=== PATIENT | female | born 1985 ===

== ENCOUNTER 2018-09-19 22:49 | Outpatient (REF) | payer OTHER, SELFPAY ==
[2018-09-19 23:01] LABS: Abs Immature Grans 0.02 k/cumm (0.0-0.09); Absolute Basophil Count 0.05 k/cumm (0.0-0.2); Absolute Eosinophil Count 0.21 k/cumm (0.0-0.7); Absolute Lymphocyte Count 2.78 k/cumm (1.2-3.4); Absolute Monocyte Count 0.69 k/cumm (0.11-0.7); Absolute Neutrophil Count 5.65 k/cumm (1.2-6.7); Basophils % 0.5; Eosinophils % 2.2; HCT 42.1 % (36.0-46.0); HGB 14.4 g/dL (12.0-15.5); Immature Grans % 0.2; Lymphocytes % 29.6; Mean Corp. HGB Concentration 34.2 g/dL (32.0-36.0); Mean Corpuscular Hemoglobin 29.3 pg (27.0-33.0); Mean Corpuscular Volume 85.6 fL (80-95); Mean Platelet Volume 9.7 fL (8.0-11.0); Monocytes % 7.3; Neutrophils % 60.2; Platelet Count 431 x1000/uL (130-400); RBC 4.92 m/cumm (4.00-5.20)
[2018-09-19 23:37] LABS: ALT 23 U/L (12-78); AST 19 U/L (15-37); Alkaline Phosphatase 104 U/L (46-116); Anion Gap 7.2 mmol/L (3-11); BUN 13 mg/dL (7-18); Bilirubin, Total 0.3 mg/dL (0.2-1.0); CO2 28.8 mmol/L (21.0-32.0); CREATININE 0.71 mg/dL (0.55-1.02); Calcium 9.5 mg/dL (8.5-10.1); Chloride 105 mmol/L (98-107); Glucose 87 mg/dL (70-100); Potassium 4.8 mmol/L (3.5-5.1); Sodium 141 mmol/L (136-145); TSH (W/Ref FT4) 0.87 uIU/mL (0.358-3.74); Total Protein 7.4 g/dL (6.4-8.2); Vitamin B12 556 pg/mL (193-986)
== END 2018-09-19 23:09 ==
LOC: NCHCN 22:49
PROVIDERS: Visit Provider Nurse Practitioner Family
DX: G47.20 Circadian rhythm sleep disorder, unspecified type (principal); F42.9 Obsessive-compulsive disorder, unspecified
CPT/HCPCS: 80053; 82607; 84443; 85025